=== PATIENT | female | born 1955 | race Two or more races ===

== ENCOUNTER 2024-08-14 07:00 | Inpatient (IN) | payer OTHER ==
[~2024-08-14] VITALS: Ht 149.9 cm; Wt 90.7 kg
[~2024-08-14 07:00] MED LIST: DIOVAN160 M1 PO; OMEPRAZOLE20 MG
[2024-08-14] MEDS ORDERED: BENICAR40 MG PO (08:23)
[2024-08-14] MEDS ORDERED: CITALOPRAM HBR10 MG PO (08:23)
[2024-08-14] MEDS ORDERED: OZEMPIC0.25 MG/02 (08:24)
[2024-08-14 08:25] VITALS: BP 125/73
[2024-08-14 08:37] LABS: PH,URINE 6.5 (5.0-8.0); URINE APPEARANCE Cloudy; URINE BILIRRUBIN Negative (NEGATIVE); URINE BLOOD Negative; URINE COLOR Yellow; URINE GLUCOSE Negative (NEGATIVE); URINE KETONE Negative (NEGATIVE); URINE LEUKOCYTE Negative; URINE NITRATE Negative; URINE PROTEIN Negative (NEGATIVE); URINE UROBILINOGEN 0.2 E.U./dl
[2024-08-14 08:38] VITALS: BP 150/80
[2024-08-14 08:39] LABS: HEMATOCRIT 43.6 % (36.0-45.00); HEMOGLOBIN 14.7 g/dL (12.0-15.00); MEAN CORPUSCULAR HEMOGLOBIN 29.3 pg (27.00-32.0); MEAN CORPUSCULAR HGB CONC 33.7 g/dl (32.0-36.0); PLATELET COUNT 267 K/uL (150-450); RED BLOOD COUNT 5.01 M/uL (4.00-6.00); RED CELL DISTRIBUTION WIDTH 14.1 % (11.5-14.5)
[2024-08-14 08:41] LABS: URINE BACTERIA 9253.2 uL (0.0-1933); URINE EPITHELIAL CELLS 141.8 uL (0.0-38.8); URINE RBC 17.2 uL (0.0-20.8); URINE WBC 97.6 uL (0.0-23.2)
[2024-08-14 09:20] LABS: PARTIAL THROMBOPLASTIN TIME 35.5 SECONDS (22.0-34.0); PROTHROMBIN TIME 10.9 SECONDS (9.0-11.5)
[2024-08-14 09:38] LABS: URINE CAST 1.03 uL (0.0-1.40)
[2024-08-14 09:39] LABS: URINE EPITHELIAL CELLS LOADED /HPF
[2024-08-14 10:14] LABS: ALBUMIN 3.6 gm/dL (3.4-5.0); BILIRUBIN TOTAL 0.78 mg/dL (0.3-1.2); CALCIUM 9.7 mg/dL (8.5-10.1); CREATININE SERUM 0.7 mg/dL (0.55-1.02); GFR 82.97; GLOBULINA 3.3 G/DL (2.4-3.5); POTASSIUM 4.62 mEq/L (3.5-5.1); TOTAL PROTEIN 6.9 gm/dL (6.4-8.2)
[2024-08-18] MEDS ORDERED: ONDANSETRON HCL 2 MG/ML VIAL IV PRN (09:15)
[2024-08-18] MEDS ORDERED: KETOROLAC TROMETHAMINE 60 MG VIAL IM ONE (09:20)
[2024-08-18] MEDS ORDERED: TRANEXAMIC ACID 100MG/1ML (1000MG) AMPUL IV ONE (09:20)
[2024-08-18] MEDS ORDERED: VANCOMYCIN HCL 1,000 MG VIAL ONE (09:43)
[2024-08-18] MEDS ORDERED: hydrALAZINE HCL 20 MG VIAL ONE (10:11)
[2024-08-18] MEDS ORDERED: MORPHINE SULFATE 4 MG/ML VIAL IV ONE (10:30)
[2024-08-18] MEDS ORDERED: TRAMADOL HCL 50 MG TABLET PO SCH (12:00)
[2024-08-18] MEDS ORDERED: MORPHINE SULFATE 4 MG/ML CARTRIDGE IV SCH (12:00)
[2024-08-18] MEDS ORDERED: CEFAZOLIN SODIUM 1,000 MG VIAL IV SCH (12:00)
[2024-08-18 13:50] VITALS: BP 125/73
[2024-08-18] MEDS ORDERED: ENALAPRILAT DIHYDRATE 1.25 MG/ML VIAL IV PRN (15:30)
[2024-08-18] MEDS ORDERED: DEXTROSE 50 % IN WATER 0.5 G/ML VIAL IV PRN (15:30)
[2024-08-18] MEDS ORDERED: INSULIN LISPRO 1,000 UNIT/10 ML UNITS SUBCUTANEO PRN (15:30)
[2024-08-18 15:54] VITALS: BP 145/82
[2024-08-18] MEDS ORDERED: ONDANSETRON HCL 2 MG/ML VIAL IV NR (17:45)
[2024-08-18 20:00] VITALS: BP 152/68
[2024-08-18] MEDS ORDERED: GABAPENTIN 100 MG CAPSULE PO SCH (21:00)
[2024-08-18] MEDS ORDERED: ORPHENADRINE CITRATE 100 MG TABLET PO SCH (21:00)
[2024-08-18] MEDS ORDERED: PATIENTS OWN MEDICATION (MEDICAMENTO EN PISO) PO SCH (21:00)
[2024-08-19] MEDS ORDERED: ONDANSETRON HCL 2 MG/ML VIAL IV SCH
[2024-08-19 01:04] LABS: HEMATOCRIT 39.3 % (36.0-45.00); HEMOGLOBIN 13.4 g/dL (12.0-15.00); MEAN CELL VOLUME 86.9 fL (80.00-100.00); MEAN CORPUSCULAR HEMOGLOBIN 29.7 pg (27.00-32.0); MEAN CORPUSCULAR HGB CONC 34.2 g/dl (32.0-36.0); PLATELET COUNT 247 K/uL (150-450); RED BLOOD COUNT 4.52 M/uL (4.00-6.00); RED CELL DISTRIBUTION WIDTH 14.2 % (11.5-14.5)
[2024-08-19 01:32] VITALS: BP 148/85
[2024-08-19 08:40] VITALS: BP 140/66
[2024-08-19] MEDS ORDERED: RIVAROXABAN 10 MG TAB PO SCH (09:00)
[2024-08-19 16:50] VITALS: BP 145/75
[2024-08-19] MEDS ORDERED: Cyanocobalamin/Mecobalamin 1 TAB.SL SL SCH (17:00)
[2024-08-19] MEDS ORDERED: IRON FUM,PS/FOLIC ACID/VITC/B3 1 CAP CAPSULE PO SCH (17:00)
[2024-08-19] MEDS ORDERED: VITAMIN B COMPLEX 1 EACH PO SCH (17:00)
[2024-08-20 00:16] VITALS: BP 151/71
[2024-08-20 05:01] VITALS: BP 129/65
[2024-08-20 08:13] VITALS: BP 146/81
[2024-08-20] MEDS ORDERED: XARELTO10 MG PO (10:52)
[2024-08-20] MEDS ORDERED: NORFLEX100MG PO (10:52)
[2024-08-20] MEDS ORDERED: TRAMADOL HCL50 MG PO (10:53)
[2024-08-20] MEDS ORDERED: GABAPENTIN100 MG PO (10:53)
== END 2024-08-20 16:08 | DRG 470 ==
LOC: O/R 08-18 06:12 → OB/GYN 08-18 06:12 → SURH 08-18 07:00 → OB/GYN 08-18 13:29
PROVIDERS: ADMIT Orthopaedic Surgery; ATTEND Orthopaedic Surgery
PROC: 0QUF07Z Supplement Left Patella with Autologous Tissue Substitute, Open Approach (ICD-10-PCS; 2024-08-18)
PROC: 0SRD0JZ Replacement of Left Knee Joint with Synthetic Substitute, Open Approach (ICD-10-PCS; principal; 2024-08-18 07:00)
DX: M17.12 Unilateral primary osteoarthritis, left knee (principal); D62 Acute posthemorrhagic anemia; M85.662 Other cyst of bone, left lower leg; R26.89 Other abnormalities of gait and mobility; I10 Essential (primary) hypertension; E11.9 Type 2 diabetes mellitus without complications